=== PATIENT | female | born 1985 ===

== ENCOUNTER 2020-10-20 09:57 | Emergency (ER) | payer OTHER ==
[~2020-10-20] VITALS: Ht 149.9 cm; Wt 58.1 kg
[2020-10-20] MEDS ORDERED: ZITHROMAX500 MG PO (14:13)
[2020-10-20] MEDS ORDERED: NORFLEX100MG PO (14:13)
[2020-10-20] MEDS ORDERED: KETO10TA2 PO (14:13)
== END 2020-10-20 14:17 | disposition home or self-care (01) ==
LOC: ER 09:57
DX: R51.9 Headache, unspecified (principal); M54.2 Cervicalgia; Z20.828 Contact with and (suspected) exposure to other viral communicable diseases